=== PATIENT | female | born 1970 | race Caucasian/White ===

== ENCOUNTER 2021-04-20 10:14 | Emergency (ER) | payer SELFPAY ==
[2021-04-21 12:18] LABS: SARS-CoV-2 PCR by NAA Not Detected (NotDetected)
== END 2021-04-20 11:00 | disposition home or self-care (01) ==
LOC: BURERS 10:14
DX: J06.9 Acute upper respiratory infection, unspecified (principal); I10 Essential (primary) hypertension; E11.9 Type 2 diabetes mellitus without complications; F17.210 Nicotine dependence, cigarettes, uncomplicated; Z20.822 Contact with and (suspected) exposure to COVID-19; Z79.899 Other long term (current) drug therapy
CPT/HCPCS: 99283; U0003; U0005

== ENCOUNTER 2021-04-29 10:37 | Emergency (ER) | payer SELFPAY ==
[2021-04-29] MEDS ORDERED: Bupivacaine 0.5% 10 ML VIAL ONE (11:31)
[2021-04-29] MEDS ORDERED: Ketorolac Tromethamine 30 MG/ML VIAL ONE (11:32)
== END 2021-04-29 12:00 | disposition home or self-care (01) ==
LOC: BURERS 10:37
DX: K11.20 Sialoadenitis, unspecified (principal); K04.7 Periapical abscess without sinus; I10 Essential (primary) hypertension; F17.210 Nicotine dependence, cigarettes, uncomplicated
CPT/HCPCS: 64400; 96372; J1885; J3490

== ENCOUNTER 2021-11-16 21:25 | Emergency (ER) | payer BC, SELFPAY ==
[2021-11-16] MEDS ORDERED: Fluorescein Opthalmic Strip ONE (21:39)
[2021-11-16] MEDS ORDERED: Tetracaine 0.5% PF 4 ML BOT ONE (21:39)
[2021-11-16] MEDS ORDERED: Erythromycin Base 0.5% Ophth Oint 3.5 gm Tube ONE (22:29)
== END 2021-11-16 22:35 | disposition home or self-care (01) ==
LOC: BURERS 21:25
DX: T15.02XA Foreign body in cornea, left eye, initial encounter (principal); I10 Essential (primary) hypertension; F17.210 Nicotine dependence, cigarettes, uncomplicated; W26.8XXA Contact with other sharp object(s), not elsewhere classified, initial encounter
CPT/HCPCS: 65220

== ENCOUNTER 2021-12-10 21:01 | Emergency (ER) | payer SELFPAY ==
[2021-12-10 21:58] LABS: INR-International Normal Ratio 0.9; Prothrombin Time 12.5 sec (12.0-14.7)
[2021-12-10 22:00] LABS: #Eosinphils 0.3 thou/uL (0.0-0.7); #Lymphocytes 1.7 thou/uL (1.20-3.40); #Monocytes 0.3 thou/uL (0.11-0.59); #Neutrophils 4.7 thou/uL (1.40-6.50); %Basophils 0.6 % (0.0-1.0); %Eosinophils 3.7 % (0.0-10.0); %Lymphocytes 24.2 % (21.0-51.0); %Monocytes 4.5 % (0.0-10.0); %Neutrophils 66.9 % (42.0-75.0); Mean Corpuscular HGB CONC 33.6 g/dL (32.0-36.0); Mean Corpuscular Hemoglobin 30.1 pg (27.0-31.0); Mean Corpuscular Volume 89.5 fL (78.0-98.0); Mean Platelet Volume 13.5 fL (7.4-10.4); Platelet Count 186 thou/uL (130-400); RBC Distribution Width 11.9 % (11.5-14.5)
[2021-12-10 22:04] LABS: BHCG - Serum Negative (NEGATIVE); Pregs Control Background? CLEAR/WHITE (CLR/WHITE); Pregs Control Bar Appear? YES (CONTROL BAR)
[2021-12-10 22:07] LABS: ALT (SGPT) 70 U/L (8-55); AST (SGOT) 54 U/L (5-34); Albumin 4.3 g/dL (3.5-5.0); Alkaline Phosphatase 90 U/L (40-110); Anion Gap 16 mmol/L (10-20); BUN (Urea Nitrogen) 13 mg/dL (7.0-18.7); Bilirubin, Total 0.4 mg/dL (0.2-1.2); Calc. Creatinine Clearance 0 mL/min (70-130); Calcium 9.6 mg/dL (7.8-10.44); Carbon Dioxide 25 mmol/L (22-29); Chloride 101 mmol/L (98-107); Estimated GFR 83; Globulin 4.6 g/dL (2.4-3.5); Glucose 110 mg/dL (70-105); Potassium 3.8 mmol/L (3.5-5.1); Protein, Total 8.9 g/dL (6.0-8.3); Sodium 138 mmol/L (136-145)
[2021-12-10 23:36] LABS: Bilirubin Negative (Negative); Blood, Urine Trace (Negative); Clarity Clear (Clear); Glucose, Urine (Dipstick) Negative (Negative); Ketone, Urine Negative (Negative); Leukocyte Negative (Negative); Nitrite Negative (Negative); Protein, Urine (Dipstick) Negative (Neg-Trace); Urobilinogen 0.2 mg/dL (Less than 2); pH, Urine 5.5 (5.0-9.0)
[2021-12-10 23:39] LABS: Specific Gravity, Urine Less/Equal 1.005 (1.005-1.030)
[2021-12-10 23:45] LABS: Bacteria/HPF Rare-Few HPF (None Seen); RBC/HPF 0-3 HPF (0-3); Squamous Epithelial 0-3 HPF (0-3); WBC/HPF None Seen HPF (0-3)
== END 2021-12-11 00:15 | disposition home or self-care (01) ==
LOC: BURERS 21:01
DX: N93.9 Abnormal uterine and vaginal bleeding, unspecified (principal); R53.1 Weakness; R19.7 Diarrhea, unspecified; E11.9 Type 2 diabetes mellitus without complications; I10 Essential (primary) hypertension; F17.210 Nicotine dependence, cigarettes, uncomplicated
CPT/HCPCS: 71045; 74177; 80053; 81003; 81015; 83880; 84484; 84703; 85025; 85610; 93005; 96360; 96361

== ENCOUNTER 2022-01-28 18:25 | Emergency (ER) | payer SELFPAY ==
[2022-01-28] MEDS ORDERED: predniSONE 20 MG TAB ONE (20:46)
[2022-01-28] MEDS ORDERED: Ondansetron ODT 4 MG TAB ONE (20:46)
[2022-01-28] MEDS ORDERED: Ketorolac Tromethamine 30 MG/ML VIAL ONE (20:46)
== END 2022-01-28 22:19 | disposition home or self-care (01) ==
LOC: BURERS 18:25
DX: U07.1 COVID-19 (principal); E11.9 Type 2 diabetes mellitus without complications; I10 Essential (primary) hypertension; F17.210 Nicotine dependence, cigarettes, uncomplicated
CPT/HCPCS: 87804; 96372; 99283; J1885; J7512; Q0162; U0003; U0005

== ENCOUNTER 2023-12-09 18:10 | Emergency (ER) | payer OTHER ==
[2023-12-09] MEDS ORDERED: Cephalexin 250 MG CAP ONE (18:58)
[2023-12-09] MEDS ORDERED: Bacitracin 1 PK ONE (19:01)
== END 2023-12-09 19:26 | disposition home or self-care (01) ==
LOC: BURERS 18:10
DX: L03.116 Cellulitis of left lower limb (principal); L03.115 Cellulitis of right lower limb; E11.9 Type 2 diabetes mellitus without complications; F15.10 Other stimulant abuse, uncomplicated; F17.210 Nicotine dependence, cigarettes, uncomplicated; I10 Essential (primary) hypertension
CPT/HCPCS: 99282